=== PATIENT | female | born 1930 | race Caucasian/White ===

== ENCOUNTER 2017-12-21 11:27 | Emergency (ER) | payer OTHER ==
[~2017-12-21] VITALS: Ht 152.4 cm; Wt 58.9 kg
[~2017-12-21 11:27] MED LIST: CALC-137 PO; CIPR250T2 PO; HYDR-3129 PO; HYDR200T42 PO; LEVO75TA42 PO; OMEP20CA5 PO; [UNRECOGNIZED DRUG - CODE] PO
[2017-12-21 11:30] VITALS: BP 176/74; PULSE 84; RESP 18; TEMP 97.7; O2SAT 97
[2017-12-21] MEDS ORDERED: SODIUM CHLORIDE 0.9% FLUSH 10 ML FLUSH IVF PRN (11:45)
[2017-12-21 11:50] VITALS: RESP 16; O2SAT 97
[2017-12-21] MEDS ORDERED: LEVO75TA3 PO (11:57)
[2017-12-21] MEDS ORDERED: CALC1TAB12 PO (11:57)
[2017-12-21] MEDS ORDERED: VITA100018 PO (11:57)
[2017-12-21] MEDS ORDERED: PLAQ200T PO (11:57)
[2017-12-21] MEDS ORDERED: OCUVTAB PO (11:57)
[2017-12-21] MEDS ORDERED: OMEP20TA93 PO (11:57)
[2017-12-21 12:15] LABS: AUTOMATED NEUTROPHIL # 4.5 TH/MM3 (1.8-7.7); BASOPHIL # 0.1 TH/MM3 (0-0.2); BASOPHIL % 0.8 % (0.0-2.0); EOSINOPHIL # 0.1 TH/MM3 (0-0.4); EOSINOPHIL % 1.5 % (0.0-4.0); HEMATOCRIT 39.2 % (35.0-46.0); HEMOGLOBIN 12.2 GM/DL (11.6-15.3); LYMPH % 22.5 % (9.0-44.0); LYMPHOCYTE # 1.6 TH/MM3 (1.0-4.8); MEAN CELL VOLUME 94.7 FL (80.0-100.0); MEAN CORPUSCULAR HEMOGLOBIN 29.4 PG (27.0-34.0); MEAN PLATELET VOLUME 7.6 FL (7.0-11.0); MONO % 13.1 % (0.0-8.0); MONOCYTE # 0.9 TH/MM3 (0-0.9); NEUT % 62.1 % (16.0-70.0); PLATELET COUNT 329 TH/MM3 (150-450); RED BLOOD COUNT 4.14 MIL/MM3 (4.00-5.30); RED CELL DISTRIBUTION WIDTH 12.6 % (11.6-17.2); WHITE BLOOD COUNT 7.2 TH/MM3 (4.0-11.0)
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
[2017-12-21 12:23] LABS: CHLORIDE 105 MEQ/L (98-107); SODIUM (NA) 137 MEQ/L (136-145)
[2017-12-21 12:26] LABS: BICARBONATE 25.9 MEQ/L (21.0-32.0); BLOOD UREA NITROGEN 19 MG/DL (7-18); GLUCOSE,RANDOM 119 MG/DL (74-106)
[2017-12-21 12:29] LABS: CREATININE 0.73 MG/DL (0.50-1.00); GLOMERULAR FILTRATION RATE 75 ML/MIN (>89)
--- NOTE | 2017-12-21 12:32 | RADRPT ---
EXAM DATE: 12/21/2017 12:25 PM EDT AGE/SEX: 87 years / Female INDICATIONS: Trauma. Bent over and fell in the grass. CLINICAL DATA: This is the patient's initial encounter. Patient reports that signs and symptoms have been present for 1 day and indicates a pain score of 2/10. MEDICAL/SURGICAL HISTORY: Gastroesophageal reflux disease. Diverticulitis. Leukemia. Ulcer. Marlon cardial infarction. Hysterectomy. Eye prosthesis. RADIATION DOSE: 65.04 CTDI (mGy) COMPARISON: No prior exams available for comparison. TECHNIQUE: CT of the head without contrast. Using automated exposure control and adjustment of the mA and/or kV according to patient size, radiation dose was kept as low as reasonably achievable to ob tain optimal diagnostic quality images. FINDINGS: Cerebrum: The ventricles and cortical sulci are widened. There is decreased density in the periventr icular white matter. There is low density seen in the external capsule regions bilaterally. No evide nce of midline shift, mass lesion, hemorrhage or acute infarction. No extraaxial fluid collections a re seen. Posterior Fossa: The cerebellum and brainstem are intact. The 4th ventricle is midline. The cerebe llopontine angle is unremarkable. Extracranial: The visualized portion of the orbits is intact. Skull: The calvaria is intact. No evidence of skull fracture. CONCLUSION: 1. No acute abnormality is seen. 2. Suspected age-appropriate atrophy. 3. Decreased density in the white matter likely from small vessel ischemic change. Electronically signed by: Jose Heller MD 12/21/2017 12:31 PM EDT
[2017-12-21 12:33] LABS: TROPONIN I LESS THAN 0.02 NG/ML (0.02-0.05)
--- NOTE | 2017-12-21 12:36 | RADRPT ---
EXAM DATE: 12/21/2017 12:27 PM EDT AGE/SEX: 87 years / Female INDICATIONS: Trauma. Bent over and fell in the grass. CLINICAL DATA: This is the patient's initial encounter. Patient reports that signs and symptoms have been present for 1 day and indicates a pain score of 6/10. MEDICAL/SURGICAL HISTORY: Gastroesophageal reflux disease. Diverticulitis. Lupus. Myocardial infarction. Ulcer. Hysterectomy. Eye prosthesis. RADIATION DOSE: 26.19 CTDI (mGy) COMPARISON: No prior [place] exams available for comparison. TECHNIQUE: Contiguous axial images were obtained using helical multirow detector technique. The vol umetric data was post-processed with multiplanar reconstruction in oblique axial, sagittal, and coron al planes. Using automated exposure control and adjustment of the mA and/or kV according to patient s ize, radiation dose was kept as low as reasonably achievable to obtain optimal diagnostic quality mary ges. FINDINGS: Vertebrae: Normal vertebral body height. Alignment: Retrolisthesis of C4 relative to C3 and C5.. Calcified plaque involving the carotid arteries bilaterally. C2-3: The bony spinal canal is normal in size. No evidence of disc bulge or herniation. The neural foramina are bilaterally patent. C3-4: The bony spinal canal is normal in size. No evidence of disc bulge or herniation. The neural foramina are bilaterally patent. C4-5: The bony spinal canal is normal in size. No evidence of disc bulge or herniation. The neural foramina are bilaterally patent. C5-6: The bony spinal canal is normal in size. No evidence of disc bulge or herniation. Bony uncove rtebral hypertrophy generates moderate bilateral neural foraminal narrowing.. C6-7: The bony spinal canal is normal in size. No evidence of disc bulge or herniation. Bony uncove rtebral hypertrophy generates moderate bilateral neural foraminal narrowing. C7-T1: The bony spinal canal is normal in size. No evidence of disc bulge or herniation. The neural foramina are bilateral ly patent. CONCLUSION: 1. No fracture or dislocation. 2. Degenerative changes with patent central canal. Electronically signed by: Nikolay Copeland MD 12/21/2017 12:34 PM EDT
[2017-12-21 13:43] VITALS: BP 183/70
--- NOTE | 2017-12-21 19:36 | EKG ---
Date Performed: 12/21/2017 Time Performed: 11:55:06 PTAGE: 87 years EKG: Sinus rhythm INCOMPLETE RIGHT BUNDLE BRANCH BLOCK LEFT ANTERIOR FASCICULAR BLOCK MINIMAL VOLTAGE CRITERIA FOR LVH , CONSIDER NORMAL VARIANT ABNORMAL R WAVE PROGRESSION, POSSIBLE ANTERIOR MYOCARDIAL INFARCTION ABNORM AL ECG PREVIOUS TRACING : 08/10/2013 18.55 Since the previous tracing, no significant change noted DOCTOR: Karla Taylor Interpretating Date/Time 12/21/2017 19:35:25
== END 2017-12-21 13:54 | disposition home or self-care (01) ==
LOC: PHED 11:27
DX: R55 Syncope and collapse (principal); S16.1XXA Strain of muscle, fascia and tendon at neck level, initial encounter; W19.XXXA Unspecified fall, initial encounter; R51 Headache; R94.31 Abnormal electrocardiogram [ECG] [EKG]; M32.9 Systemic lupus erythematosus, unspecified; K21.9 Gastro-esophageal reflux disease without esophagitis; E07.9 Disorder of thyroid, unspecified; Z87.891 Personal history of nicotine dependence
CPT/HCPCS: 70450; 72125; 80048; 84443; 84484; 85025; 93005; 99285